=== PATIENT | female | born 1995 | race Caucasian/White ===

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

== ENCOUNTER 2017-02-05 17:50 | Emergency (ER) | payer OTHER ==
[~2017-02-05] VITALS: Ht 160 cm; Wt 54.4 kg
[2017-02-05 18:19] LABS: BILIRUBIN NEGATIVE (NEGATIVE); BLOOD NEGATIVE (NEGATIVE); CLARITY SL CLOUDY (CLEAR); COLOR YELLOW (YELLOW); GLUCOSE NEGATIVE (NEGATIVE); KETONE TRACE (NEGATIVE); LEUKO ESTERASE TRACE (NEGATIVE); NITRITE NEGATIVE (NEGATIVE)
[2017-02-05 18:29] LABS: BACTERIA 1+; EPITHELIAL CELLS TNTC
[2017-02-05 18:30] LABS: RBC 0-2 rbc/hpf (0-2)
[2017-02-05] MEDS ORDERED: ZOFRAN ODT4 MG SL (18:53)
== END 2017-02-05 19:03 | disposition home or self-care (01) ==
LOC: ED 17:50
PROVIDERS: Physician Assistant
DX: R11.2 Nausea with vomiting, unspecified (principal); Z88.5 Allergy status to narcotic agent; Z88.8 Allergy status to other drugs, medicaments and biological substances

== ENCOUNTER 2017-03-26 18:29 | Emergency (ER) | payer OTHER ==
[~2017-03-26] VITALS: Wt 57.6 kg
[2017-03-26 19:05] LABS: BILIRUBIN NEGATIVE (NEGATIVE); BLOOD 1+ (NEGATIVE); CLARITY SL CLOUDY (CLEAR); COLOR YELLOW (YELLOW); GLUCOSE NEGATIVE (NEGATIVE); KETONE NEGATIVE (NEGATIVE); LEUKO ESTERASE NEGATIVE (NEGATIVE); NITRITE NEGATIVE (NEGATIVE); SPECIFIC GRAVITY >= 1.030 (1.005-1.030); UROBILINOGEN 0.2 E.U./dl (0.2-1.0)
[2017-03-26 19:11] LABS: BACTERIA 1+; MUCOUS 1+
[2017-03-26 19:33] LABS: ALBUMIN 3.7 gm/dl (3.1-4.5); ALKALINE PHOSPHATASE 71 U/L (45-117); BUN 9 mg/dl (7-24); CHLORIDE 104 mmol/L (98-107); CREATININE 0.66 mg/dL (0.55-1.02); POTASSIUM 4.1 mmol/L (3.5-5.1); SGOT/AST 16 IU/L (3-35); SGPT/ALT 17 U/L (12-78); SODIUM 139 mmol/L (136-145); TOTAL PROTEIN 7.3 gm/dL (6.4-8.2)
[2017-03-26 20:03] LABS: BASO % 0.1 % (0.0-1.0); EOS # 0.1 10*3/uL (0.0-0.4); EOS % 0.7 % (1.0-4.0); HEMATOCRIT 39.6 % (37.0-47.0); HEMOGLOBIN 13.1 g/dl (12.0-16.0); LYMPH # 2.2 10*3/uL (1.3-4.4); LYMPH % 30.3 % (27.0-41.0); MEAN CELL VOLUME 91.5 fl (81.0-99.0); MEAN CORPUSCULAR HGB 30.3 pg (27.0-31.0); MEAN CORPUSCULAR HGB CONC 33.1 g/dl (33.0-37.0); MEAN PLATELET VOLUME 10.7 fl (9.6-12.3); MONO # 0.3 10*3/uL (0.1-1.0); MONO % 4.5 % (3.0-9.0); NEUT # 4.6 10*3/uL (2.3-7.9); NEUT % 64.1 % (47.0-73.0); PLATELET COUNT AUTOMATED 221 10*3/uL (130-400); RED BLOOD COUNT 4.33 10*6/uL (4.10-5.10); RED CELL DISTRI WIDTH 13.3 % (0-14.5); WHITE BLOOD COUNT 7.2 10*3/uL (4.8-10.8)
== END 2017-03-26 20:29 | disposition home or self-care (01) ==
LOC: ED 18:29
PROVIDERS: Nurse Practitioner
DX: O46.91 Antepartum hemorrhage, unspecified, first trimester (principal); O26.891 Other specified pregnancy related conditions, first trimester; Z3A.01 Less than 8 weeks gestation of pregnancy; R10.30 Lower abdominal pain, unspecified; Z88.5 Allergy status to narcotic agent

== ENCOUNTER → 2017-03-29 | Outpatient (CLI) | payer OTHER | END | disposition home or self-care (01) | LOC: LAB 14:44 | DX: O20.9 Hemorrhage in early pregnancy, unspecified (principal) ==

== ENCOUNTER 2017-09-17 05:46 | Emergency (ER) | payer OTHER ==
[~2017-09-17] VITALS: Ht 157.4 cm; Wt 54.4 kg
--- NOTE | ~2017-09-17 | EKG ---
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
[2017-09-17 06:55] LABS: BASO % 0.2 % (0.0-1.0); EOS % 0.2 % (1.0-4.0); HEMATOCRIT 41.5 % (37.0-47.0); HEMOGLOBIN 13.8 g/dl (12.0-16.0); LYMPH # 2.2 10*3/uL (1.3-4.4); LYMPH % 26.8 % (27.0-41.0); MEAN CELL VOLUME 95.2 fl (81.0-99.0); MEAN CORPUSCULAR HGB 31.7 pg (27.0-31.0); MEAN CORPUSCULAR HGB CONC 33.3 g/dl (33.0-37.0); MEAN PLATELET VOLUME 10.9 fl (9.6-12.3); MONO # 0.5 10*3/uL (0.1-1.0); MONO % 5.7 % (3.0-9.0); NEUT # 5.4 10*3/uL (2.3-7.9); NEUT % 66.9 % (47.0-73.0); PLATELET COUNT AUTOMATED 213 10*3/uL (130-400); RED BLOOD COUNT 4.36 10*6/uL (4.10-5.10); RED CELL DISTRI WIDTH 12.4 % (0-14.5); WHITE BLOOD COUNT 8.1 10*3/uL (4.8-10.8)
[2017-09-17 07:12] LABS: ALBUMIN 4.2 gm/dl (3.1-4.5); ALKALINE PHOSPHATASE 64 U/L (45-117); BUN 12 mg/dl (7-24); CHLORIDE 108 mmol/L (98-107); POTASSIUM 3.6 mmol/L (3.5-5.1); SGOT/AST 11 IU/L (3-35); SGPT/ALT 14 U/L (12-78); SODIUM 142 mmol/L (136-145); TOTAL PROTEIN 7.6 gm/dL (6.4-8.2)
[2017-09-17 07:13] LABS: B-hCG (QUALITATIVE) NEGATIVE (NEGATIVE); ETHYL ALCOHOL < 3.0 mg/dl (<3)
[2017-09-17 07:17] LABS: BETA-HCG, QUANT < 1.0 mIU/mL (1-3); TROPONIN I < 0.015 ng/ml (<0.045)
[2017-09-17 07:24] LABS: BILIRUBIN NEGATIVE (NEGATIVE); BLOOD 3+ (NEGATIVE); CLARITY CLOUDY (CLEAR); COLOR YELLOW (YELLOW); GLUCOSE NEGATIVE (NEGATIVE); KETONE NEGATIVE (NEGATIVE); LEUKO ESTERASE NEGATIVE (NEGATIVE); NITRITE NEGATIVE (NEGATIVE); PH 6.5 (5.0-9.0)
[2017-09-17 07:36] LABS: BACTERIA 2+; EPITHELIAL CELLS 15-20; MUCOUS 1+
[2017-09-17] MEDS ORDERED: IBUPROFEN600 MG PO (08:26)
[2017-09-17] MEDS ORDERED: ZOFRAN ODT4 MG SL (08:26)
== END 2017-09-17 08:45 | disposition home or self-care (01) ==
LOC: ED 05:46
PROVIDERS: Emergency Medicine Emergency Medical Services
DX: S09.90XA Unspecified injury of head, initial encounter (principal); R07.89 Other chest pain; K21.9 Gastro-esophageal reflux disease without esophagitis; Z98.890 Other specified postprocedural states; Z88.5 Allergy status to narcotic agent; Y04.0XXA Assault by unarmed brawl or fight, initial encounter; Y93.89 Activity, other specified; Y92.89 Other specified places as the place of occurrence of the external cause; Y99.9 Unspecified external cause status

== ENCOUNTER 2017-11-02 22:19 | Emergency (ER) | payer OTHER ==
[~2017-11-02] VITALS: Ht 160 cm; Wt 54.4 kg
[2017-11-02] MEDS ORDERED: MEDROL DOSEPAK4 MG PO (22:55)
[2017-11-02] MEDS ORDERED: CYCLOBENZAPRINE5 M3 PO (22:55)
[2017-11-02] MEDS ORDERED: Motrin,Rufen800 MG PO (22:55)
== END 2017-11-02 23:53 | disposition home or self-care (01) ==
LOC: ED 22:19
DX: M54.16 Radiculopathy, lumbar region (principal); K21.9 Gastro-esophageal reflux disease without esophagitis; Z88.0 Allergy status to penicillin; Z91.018 Allergy to other foods

== ENCOUNTER 2018-09-08 15:37 | Emergency (ER) | payer OTHER ==
[~2018-09-08] VITALS: Ht 160 cm; Wt 54.0 kg
[~2018-09-08 15:37] MED LIST changes: +AMOXICILLIN500 M2 PO; +CYCLOBENZAPRINE5 M3 PO; +Motrin,Rufen800 MG PO
[2018-09-08] MEDS ORDERED: AUGMENTIN 875-875 MG PO (16:34)
[2018-09-08] MEDS ORDERED: CORTISPORIN SUS10 ML OT (16:34)
== END 2018-09-08 16:40 | disposition home or self-care (01) ==
LOC: ED 15:37
DX: J01.90 Acute sinusitis, unspecified (principal); H60.41 Cholesteatoma of right external ear; Z88.6 Allergy status to analgesic agent; Z91.018 Allergy to other foods

== ENCOUNTER 2018-09-18 18:57 | Emergency (ER) | payer SELFPAY ==
[~2018-09-18] VITALS: Wt 54.4 kg
[~2018-09-18 18:57] MED LIST changes: +AUGMENTIN 875-875 MG PO
[2018-09-18 20:10] LABS: BASO % 0.2 % (0.0-1.0); EOS # 0.1 10*3/uL (0.0-0.4); EOS % 0.6 % (1.0-4.0); HEMATOCRIT 35.8 % (37.0-47.0); HEMOGLOBIN 11.6 g/dl (12.0-16.0); LYMPH # 3.9 10*3/uL (1.3-4.4); LYMPH % 37.7 % (27.0-41.0); MEAN CORPUSCULAR HGB 31.4 pg (27.0-31.0); MEAN CORPUSCULAR HGB CONC 32.4 g/dl (33.0-37.0); MEAN PLATELET VOLUME 11.1 fl (9.6-12.3); MONO # 0.6 10*3/uL (0.1-1.0); MONO % 6.1 % (3.0-9.0); NEUT # 5.6 10*3/uL (2.3-7.9); NEUT % 55.2 % (47.0-73.0); PLATELET COUNT AUTOMATED 226 10*3/uL (130-400); RED BLOOD COUNT 3.69 10*6/uL (4.10-5.10); RED CELL DISTRI WIDTH 12.6 % (0-14.5); WHITE BLOOD COUNT 10.2 10*3/uL (4.8-10.8)
[2018-09-18 20:26] LABS: ALBUMIN 3.5 gm/dl (3.1-4.5); ALKALINE PHOSPHATASE 53 U/L (45-117); BUN 10 mg/dl (7-24); CHLORIDE 106 mmol/L (98-107); CREATININE 0.71 mg/dL (0.55-1.02); POTASSIUM 3.2 mmol/L (3.5-5.1); SGOT/AST 11 IU/L (3-35); SGPT/ALT 14 U/L (12-78); SODIUM 136 mmol/L (136-145); TOTAL PROTEIN 6.5 gm/dL (6.4-8.2)
[2018-09-18 20:34] LABS: B-hCG (QUALITATIVE) POSITIVE (NEGATIVE)
[2018-09-18 20:43] LABS: BILIRUBIN NEGATIVE (NEGATIVE); BLOOD NEGATIVE (NEGATIVE); CLARITY CLEAR (CLEAR); COLOR YELLOW (YELLOW); GLUCOSE NEGATIVE (NEGATIVE); KETONE NEGATIVE (NEGATIVE); LEUKO ESTERASE NEGATIVE (NEGATIVE); NITRITE NEGATIVE (NEGATIVE); PH 6.5 (5.0-9.0); UROBILINOGEN 0.2 E.U./dl (0.2-1.0)
[2018-09-18 20:50] LABS: BACTERIA TRACE; EPITHELIAL CELLS 16-20
[2018-09-18] MEDS ORDERED: PRENATAL ONE D1 EACH PO (21:36)
[2018-09-18] MEDS ORDERED: DICLEGIS DR 101 EACH PO (21:36)
== END 2018-09-18 22:05 | disposition home or self-care (01) ==
LOC: ED 18:57
PROVIDERS: Physician Assistant
DX: O26.891 Other specified pregnancy related conditions, first trimester (principal); R42 Dizziness and giddiness; R55 Syncope and collapse; R53.1 Weakness; Z3A.01 Less than 8 weeks gestation of pregnancy; Z91.018 Allergy to other foods; Z88.5 Allergy status to narcotic agent; Z79.899 Other long term (current) drug therapy; Z79.2 Long term (current) use of antibiotics

== ENCOUNTER 2019-05-16 00:46 | Emergency (ER) | payer OTHER ==
[~2019-05-16] VITALS: Ht 160 cm; Wt 59.0 kg
[~2019-05-16 00:46] MED LIST changes: +DICLEGIS DR 101 EACH PO; +PRENATAL ONE D1 EACH PO
[2019-05-16 01:25] LABS: BILIRUBIN NEGATIVE (NEGATIVE); BLOOD 3+ (NEGATIVE); CLARITY SL CLOUDY (CLEAR); COLOR YELLOW (YELLOW); GLUCOSE NEGATIVE (NEGATIVE); KETONE NEGATIVE (NEGATIVE); NITRITE NEGATIVE (NEGATIVE); SPECIFIC GRAVITY 1.015 (1.005-1.030); UROBILINOGEN 0.2 E.U./dl (0.2-1.0)
[2019-05-16 01:26] LABS: LEUKO ESTERASE 1+ (NEGATIVE)
[2019-05-16 01:35] LABS: BACTERIA 4+; EPITHELIAL CELLS 25-30; RBC TNTC rbc/hpf (0-2); WBC TNTC wbc/hpf (0-5)
[2019-05-16] MEDS ORDERED: PYRIDIUM200 M1 PO (01:53)
[2019-05-16] MEDS ORDERED: AMOXICILLIN500 M2 PO (01:53)
== END 2019-05-16 02:12 | disposition home or self-care (01) ==
LOC: ED 00:46
PROVIDERS: Emergency Medicine
DX: N39.0 Urinary tract infection, site not specified (principal); Z88.5 Allergy status to narcotic agent; Z88.8 Allergy status to other drugs, medicaments and biological substances

== ENCOUNTER → 2019-08-24 | Outpatient (CLI) | payer OTHER ==
[~2019-08-24] MED LIST changes: +PYRIDIUM200 M1 PO
== END | disposition home or self-care (01) ==
LOC: NM 11:00
DX: R10.9 Unspecified abdominal pain (principal)

== ENCOUNTER 2021-09-05 18:55 | Emergency (ER) | payer OTHER ==
[~2021-09-05] VITALS: Ht 160 cm; Wt 60.6 kg
[2021-09-05 19:22] LABS: BASO % 0.2 % (0.0-1.0); EOS # 0.1 10*3/uL (0.0-0.4); EOS % 2.4 % (1.0-4.0); HEMATOCRIT 38.6 % (37.0-47.0); LYMPH # 1.7 10*3/uL (1.3-4.4); LYMPH % 37.4 % (27.0-41.0); MEAN CELL VOLUME 92.3 fl (81.0-99.0); MEAN CORPUSCULAR HGB 30.1 pg (27.0-31.0); MEAN CORPUSCULAR HGB CONC 32.6 g/dl (33.0-37.0); MEAN PLATELET VOLUME 10.7 fl (9.6-12.3); MONO # 0.4 10*3/uL (0.1-1.0); MONO % 9.6 % (3.0-9.0); NEUT # 2.3 10*3/uL (2.3-7.9); NEUT % 50.4 % (47.0-73.0); PLATELET COUNT AUTOMATED 197 10*3/uL (130-400); RED BLOOD COUNT 4.18 10*6/uL (4.10-5.10); RED CELL DISTRI WIDTH 13.8 % (0-14.5); WHITE BLOOD COUNT 4.6 10*3/uL (4.8-10.8)
[2021-09-05] MEDS ORDERED: ESCITALOPRAM OX10 MG PO (19:32)
[2021-09-05 19:34] LABS: ACT PARTIAL THROMBO TIME 32.9 SECONDS (20.0-32.1)
[2021-09-05 19:39] LABS: ALKALINE PHOSPHATASE 92 U/L (45-117); BUN 14 mg/dl (7-24); CHLORIDE 109 mmol/L (98-107); CREATININE 0.75 mg/dL (0.55-1.02); POTASSIUM 3.6 mmol/L (3.5-5.1); SGOT/AST 15 IU/L (3-35); SGPT/ALT 17 U/L (12-78); SODIUM 141 mmol/L (136-145); TOTAL PROTEIN 6.9 gm/dL (6.4-8.2)
== END 2021-09-05 20:36 | disposition home or self-care (01) ==
LOC: ED 18:55
PROVIDERS: Internal Medicine
DX: R07.9 Chest pain, unspecified (principal); T50.B95A Adverse effect of other viral vaccines, initial encounter; Z88.8 Allergy status to other drugs, medicaments and biological substances; Z91.018 Allergy to other foods; Z79.899 Other long term (current) drug therapy; Y92.89 Other specified places as the place of occurrence of the external cause

== ENCOUNTER 2022-06-11 21:46 | Emergency (ER) | payer OTHER ==
[~2022-06-11] VITALS: Ht 160 cm; Wt 53.5 kg
[~2022-06-11 21:46] MED LIST changes: +ESCITALOPRAM OX10 MG PO
[2022-06-11 22:20] LABS: BASO % 0.2 % (0.0-1.0); EOS % 0.3 % (1.0-4.0); HEMATOCRIT 39.3 % (37.0-47.0); LYMPH % 25.8 % (27.0-41.0); MEAN CELL VOLUME 92.9 fl (81.0-99.0); MEAN CORPUSCULAR HGB 30.7 pg (27.0-31.0); MEAN CORPUSCULAR HGB CONC 33.1 g/dl (33.0-37.0); MEAN PLATELET VOLUME 10.7 fl (9.6-12.3); MONO # 0.6 10*3/uL (0.1-1.0); NEUT % 68.4 % (47.0-73.0); PLATELET COUNT AUTOMATED 237 10*3/uL (130-400); RED BLOOD COUNT 4.23 10*6/uL (4.10-5.10); WHITE BLOOD COUNT 11.7 10*3/uL (4.8-10.8)
[2022-06-11 22:37] LABS: ALKALINE PHOSPHATASE 63 U/L (46-116); BUN 8 mg/dl (9-23); CHLORIDE 107 mmol/L (98-107); LIPASE 32 U/L (12-53); POTASSIUM 3.4 mmol/L (3.4-5.1); TOTAL PROTEIN 6.6 gm/dL (6.0-8.0)
[2022-06-11 22:39] LABS: SGPT/ALT < 7 U/L (10-49)
[2022-06-11 22:43] LABS: BILIRUBIN Negative (Negative); BLOOD Negative (Negative); CLARITY Clear (Clear); COLOR Yellow (Yellow); GLUCOSE Negative (Negative); KETONE Negative (Negative); LEUKO ESTERASE Trace (Negative); NITRITE Negative (Negative); SPECIFIC GRAVITY >= 1.030 (1.001-1.030)
[2022-06-11 22:57] LABS: BACTERIA 2+; EPITHELIAL CELLS 21-30
== END 2022-06-11 23:37 | disposition home or self-care (01) ==
LOC: ED 21:46
PROVIDERS: Internal Medicine
DX: O21.0 Mild hyperemesis gravidarum (principal); Z3A.00 Weeks of gestation of pregnancy not specified; Z88.8 Allergy status to other drugs, medicaments and biological substances; Z91.018 Allergy to other foods

== ENCOUNTER 2022-08-05 12:05 | Emergency (ER) | payer MEDICAID ==
[~2022-08-05] VITALS: Wt 55.3 kg
[2022-08-05 12:53] LABS: BILIRUBIN Negative (Negative); BLOOD Negative (Negative); CLARITY Clear (Clear); COLOR Yellow (Yellow); GLUCOSE Negative (Negative); KETONE 1+ (Negative); LEUKO ESTERASE Negative (Negative); NITRITE Negative (Negative); PH 5.5 (4.5-8.0); SPECIFIC GRAVITY 1.025 (1.001-1.030)
[2022-08-05 13:01] LABS: BASO % 0.1 % (0.0-1.0); EOS % 0.4 % (1.0-4.0); HEMATOCRIT 40.4 % (37.0-47.0); LYMPH # 1.9 10*3/uL (1.3-4.4); LYMPH % 22.5 % (27.0-41.0); MEAN CELL VOLUME 94.6 fl (81.0-99.0); MEAN CORPUSCULAR HGB 32.1 pg (27.0-31.0); MEAN CORPUSCULAR HGB CONC 33.9 g/dl (33.0-37.0); MEAN PLATELET VOLUME 10.8 fl (9.6-12.3); MONO # 0.4 10*3/uL (0.1-1.0); MONO % 4.3 % (3.0-9.0); NEUT # 6.2 10*3/uL (2.3-7.9); NEUT % 72.5 % (47.0-73.0); PLATELET COUNT AUTOMATED 217 10*3/uL (130-400); RED BLOOD COUNT 4.27 10*6/uL (4.10-5.10); RED CELL DISTRI WIDTH 13.2 % (0-14.5); WHITE BLOOD COUNT 8.6 10*3/uL (4.8-10.8)
[2022-08-05 13:05] LABS: BACTERIA 2+; CALCIUM OXALATE CRYSTALS Trace; EPITHELIAL CELLS 41-50; MUCOUS 1+
[2022-08-05 13:28] LABS: ACT PARTIAL THROMBO TIME 29.6 SECONDS (20.0-32.1)
[2022-08-05 13:34] LABS: ALKALINE PHOSPHATASE 47 U/L (46-116); BUN 5 mg/dl (9-23); CHLORIDE 106 mmol/L (98-107); LIPASE 39 U/L (12-53); POTASSIUM 3.6 mmol/L (3.4-5.1); SGPT/ALT 11 U/L (10-49); TOTAL PROTEIN 6.7 gm/dL (6.0-8.0)
[2022-08-05] MEDS ORDERED: CEPHALEXIN500 M1 PO ×3 (13:56→13:57)
== END 2022-08-05 15:37 | disposition home or self-care (01) ==
LOC: ED 12:05
PROVIDERS: Internal Medicine
DX: O41.10 Infection of amniotic sac and membranes, unspecified (principal); R11.0 Nausea; Z91.018 Allergy to other foods; Z88.5 Allergy status to narcotic agent; Z3A.11 11 weeks gestation of pregnancy

== ENCOUNTER 2022-09-27 02:49 | Emergency (ER) | payer OTHER ==
[~2022-09-27] VITALS: Ht 160 cm; Wt 57.7 kg
[~2022-09-27 02:49] MED LIST changes: +CEPHALEXIN500 M1 PO
[2022-09-27 03:05] LABS: BASO % 0.2 % (0.0-1.0); HEMATOCRIT 39.8 % (37.0-47.0); LYMPH # 1.4 10*3/uL (1.3-4.4); LYMPH % 22.2 % (27.0-41.0); MEAN CELL VOLUME 93.6 fl (81.0-99.0); MEAN CORPUSCULAR HGB 31.8 pg (27.0-31.0); MEAN CORPUSCULAR HGB CONC 33.9 g/dl (33.0-37.0); MEAN PLATELET VOLUME 10.2 fl (9.6-12.3); MONO # 0.3 10*3/uL (0.1-1.0); MONO % 4.5 % (3.0-9.0); NEUT # 4.6 10*3/uL (2.3-7.9); NEUT % 72.8 % (47.0-73.0); PLATELET COUNT AUTOMATED 312 10*3/uL (130-400); RED BLOOD COUNT 4.25 10*6/uL (4.10-5.10); RED CELL DISTRI WIDTH 12.3 % (0-14.5); WHITE BLOOD COUNT 6.3 10*3/uL (4.8-10.8)
[2022-09-27 03:20] LABS: ACT PARTIAL THROMBO TIME 30.2 SECONDS (20.0-32.1); INTERNATIONAL NORM RATIO 1.1 (2.0-3.5)
[2022-09-27 03:26] LABS: ALKALINE PHOSPHATASE 72 U/L (46-116); CHLORIDE 109 mmol/L (98-107); LIPASE 32 U/L (12-53); POTASSIUM 3.1 mmol/L (3.4-5.1); SGPT/ALT 8 U/L (10-49)
[2022-09-27 03:27] LABS: BUN < 5 mg/dl (9-23)
[2022-09-27 04:33] LABS: URINE AMPHETAMINES Negative (1000ng/ml); URINE BARBITURATES Negative (200ng/ml); URINE BENZODIAZEPINES Negative (200ng/ml); URINE CANNABINOIDS (THC) Negative (50ng/ml); URINE COCAINE Negative (300ng/ml); URINE METHADONE Negative (300ng/ml); URINE OPIATES Negative (300ng/ml); URINE PHENCYCLIDINE Negative (25ng/ml)
== END 2022-09-27 09:10 | disposition left against medical advice (07) ==
LOC: ED 02:49
PROVIDERS: Internal Medicine
DX: S01.81XA Laceration without foreign body of other part of head, initial encounter (principal); F10.129 Alcohol abuse with intoxication, unspecified; E87.6 Hypokalemia; E87.20 Acidosis, unspecified; Z88.5 Allergy status to narcotic agent; Z91.018 Allergy to other foods; Z79.899 Other long term (current) drug therapy; Y90.8 Blood alcohol level of 240 mg/100 ml or more; W01.0XXA Fall on same level from slipping, tripping and stumbling without subsequent striking against object, initial encounter; Y93.89 Activity, other specified; Y92.89 Other specified places as the place of occurrence of the external cause; Y99.8 Other external cause status

== ENCOUNTER 2023-02-03 12:06 | Emergency (ER) | payer OTHER | END 2023-02-03 13:26 | disposition left against medical advice (07) | LOC: ED 12:06 | DX: R50.9 Fever, unspecified (principal); R05.9 Cough, unspecified; Z88.5 Allergy status to narcotic agent; Z91.018 Allergy to other foods; Z53.21 Procedure and treatment not carried out due to patient leaving prior to being seen by health care provider ==

== ENCOUNTER 2023-04-05 12:50 | Emergency (ER) | payer OTHER ==
[~2023-04-05] VITALS: Ht 160 cm; Wt 50.8 kg
[2023-04-05 13:36] LABS: BASO % 0.3 % (0.0-1.0); EOS # 0.1 10*3/uL (0.0-0.4); EOS % 1.5 % (1.0-4.0); HEMATOCRIT 44.4 % (37.0-47.0); LYMPH # 1.4 10*3/uL (1.3-4.4); LYMPH % 23.5 % (27.0-41.0); MEAN CELL VOLUME 92.7 fl (81.0-99.0); MEAN CORPUSCULAR HGB 30.1 pg (27.0-31.0); MEAN CORPUSCULAR HGB CONC 32.4 g/dl (33.0-37.0); MEAN PLATELET VOLUME 10.4 fl (9.6-12.3); MONO # 0.5 10*3/uL (0.1-1.0); MONO % 8.6 % (3.0-9.0); NEUT % 65.9 % (47.0-73.0); PLATELET COUNT AUTOMATED 285 10*3/uL (130-400); RED BLOOD COUNT 4.79 10*6/uL (4.10-5.10); RED CELL DISTRI WIDTH 12.8 % (0-14.5); WHITE BLOOD COUNT 6.1 10*3/uL (4.8-10.8)
[2023-04-05 13:42] LABS: BILIRUBIN Negative (Negative); BLOOD 3+ (Negative); CLARITY Cloudy (Clear); COLOR Dark Yellow (Yellow); GLUCOSE Negative (Negative); KETONE Trace (Negative); LEUKO ESTERASE Negative (Negative); NITRITE Negative (Negative); SPECIFIC GRAVITY >= 1.030 (1.001-1.030)
[2023-04-05 13:46] LABS: ACT PARTIAL THROMBO TIME 35.6 SECONDS (20.0-32.1)
[2023-04-05 13:55] LABS: BACTERIA 2+; EPITHELIAL CELLS 51-100; RBC 16-20 rbc/hpf (0-2)
[2023-04-05 14:08] LABS: BUN 8 mg/dl (9-23); CHLORIDE 105 mmol/L (98-107); POTASSIUM 3.1 mmol/L (3.4-5.1)
[2023-04-05] MEDS ORDERED: CEPHALEXIN 500 MG CAP PO ONE (14:50)
[2023-04-05] MEDS ORDERED: POTASSIUM CHLORIDE 20 MEQ TAB PO ONE (14:50)
[2023-04-05] MEDS ORDERED: CEPHALEXIN500 M1 PO (14:53)
== END 2023-04-05 15:06 | disposition home or self-care (01) ==
LOC: ED 12:50
PROVIDERS: Nurse Practitioner Family
DX: O46.91 Antepartum hemorrhage, unspecified, first trimester (principal); F41.9 Anxiety disorder, unspecified; O26.891 Other specified pregnancy related conditions, first trimester; K21.9 Gastro-esophageal reflux disease without esophagitis; R82.71 Bacteriuria; E87.6 Hypokalemia; R07.89 Other chest pain; R10.2 Pelvic and perineal pain; Z3A.01 Less than 8 weeks gestation of pregnancy; Z88.8 Allergy status to other drugs, medicaments and biological substances; Z88.5 Allergy status to narcotic agent

== ENCOUNTER 2023-04-29 13:21 | Emergency (ER) | payer OTHER ==
[~2023-04-29] VITALS: Ht 160 cm; Wt 54.9 kg
[2023-04-29 14:17] LABS: BASO % 0.1 % (0.0-1.0); EOS % 0.4 % (1.0-4.0); HEMATOCRIT 41.2 % (37.0-47.0); LYMPH # 1.6 10*3/uL (1.3-4.4); LYMPH % 19.9 % (27.0-41.0); MEAN CELL VOLUME 93.6 fl (81.0-99.0); MEAN CORPUSCULAR HGB 30.5 pg (27.0-31.0); MEAN CORPUSCULAR HGB CONC 32.5 g/dl (33.0-37.0); MEAN PLATELET VOLUME 10.9 fl (9.6-12.3); MONO # 0.5 10*3/uL (0.1-1.0); MONO % 6.9 % (3.0-9.0); NEUT # 5.7 10*3/uL (2.3-7.9); NEUT % 72.4 % (47.0-73.0); PLATELET COUNT AUTOMATED 203 10*3/uL (130-400); RED CELL DISTRI WIDTH 13.2 % (0-14.5); WHITE BLOOD COUNT 7.8 10*3/uL (4.8-10.8)
[2023-04-29 14:27] LABS: BILIRUBIN Negative (Negative); BLOOD Negative (Negative); CLARITY Clear (Clear); COLOR Yellow (Yellow); GLUCOSE Negative (Negative); KETONE Negative (Negative); LEUKO ESTERASE 1+ (Negative); NITRITE Negative (Negative); SPECIFIC GRAVITY <= 1.005 (1.001-1.030); UROBILINOGEN 0.2 E.U./dl (0.0-1.0)
[2023-04-29 14:42] LABS: BACTERIA 1+; EPITHELIAL CELLS 16-20; MUCOUS 1+; RBC 0-2 rbc/hpf (0-2); WBC 21-30 wbc/hpf (0-5)
[2023-04-29 14:47] LABS: BUN 6 mg/dl (9-23); CHLORIDE 105 mmol/L (98-107)
== END 2023-04-29 15:45 | disposition home or self-care (01) ==
LOC: ED 13:21
PROVIDERS: Nurse Practitioner Family
DX: O46.91 Antepartum hemorrhage, unspecified, first trimester (principal); O26.891 Other specified pregnancy related conditions, first trimester; R10.9 Unspecified abdominal pain; R10.2 Pelvic and perineal pain; Z3A.09 9 weeks gestation of pregnancy; Z88.8 Allergy status to other drugs, medicaments and biological substances; Z88.5 Allergy status to narcotic agent

== ENCOUNTER 2023-12-29 17:03 | Emergency (ER) | payer OTHER ==
[~2023-12-29] VITALS: Wt 66.7 kg
[2023-12-29] MEDS ORDERED: AMOX-CLAV 875-1 EACH PO (17:43)
== END 2023-12-29 17:44 | disposition home or self-care (01) ==
LOC: ED 17:03
DX: H66.91 Otitis media, unspecified, right ear (principal); Z88.8 Allergy status to other drugs, medicaments and biological substances; Z88.5 Allergy status to narcotic agent

== ENCOUNTER 2025-02-08 13:57 | Emergency (ER) | payer OTHER ==
[~2025-02-08] VITALS: Ht 160 cm; Wt 60.3 kg
[~2025-02-08 13:57] MED LIST changes: +AMOX-CLAV 875-1 EACH PO
[2025-02-08] MEDS ORDERED: IOHEXOL 300 MG/ML 100 ML VIAL IV ONE (14:20)
[2025-02-08] MEDS ORDERED: SODIUM CHLORIDE 0.9% 1,000 ML IV ONE (14:20)
[2025-02-08 14:31] LABS: BASO # 0.0 10*3/uL (0.0-0.1); BASO % 0.1 % (0.0-1.0); EOS # 0.1 10*3/uL (0.0-0.4); EOS % 0.5 % (1.0-4.0); MEAN CELL VOLUME 93.6 fl (81.0-99.0); MEAN CORPUSCULAR HGB 30.8 pg (27.0-31.0); MEAN PLATELET VOLUME 10.8 fl (9.6-12.3); MONO # 0.7 10*3/uL (0.1-1.0); MONO % 7.7 % (3.0-9.0); NEUT # 5.8 10*3/uL (2.3-7.9); NEUT % 62.4 % (47.0-73.0); NUCLEATED RED BLOOD CELL 0.0 % (0.0-0.0); NUCLEATED RED BLOOD CELL 0.0 10*3/uL (0.0-0.0); PLATELET COUNT AUTOMATED 200 10*3/uL (130-400); RED CELL DISTRI WIDTH 13.1 % (0-14.5)
[2025-02-08 14:49] LABS: BILIRUBIN Negative (Negative); BLOOD Negative (Negative); CLARITY Clear (Clear); COLOR Yellow (Yellow); KETONE Negative (Negative); LEUKO ESTERASE Negative (Negative); NITRITE Negative (Negative); PH 6.0 (4.5-8.0); SPECIFIC GRAVITY >= 1.030 (1.001-1.030); UROBILINOGEN 0.2 E.U./dl (0.0-1.0)
[2025-02-08 15:01] LABS: BUN 13 mg/dl (9-23); SGPT/ALT 11 U/L (5-49)
[2025-02-08 15:05] LABS: BACTERIA TRACE; MUCOUS 3+
[2025-02-08] MEDS ORDERED: CEPHALEXIN500 M1 PO (15:15)
[2025-02-08] MEDS ORDERED: Motrin,Rufen800 MG PO (15:16)
[2025-02-08] MEDS ORDERED: IBUPROFEN 800 MG TAB PO ONE ×2 (15:25)
== END 2025-02-08 15:20 | disposition home or self-care (01) ==
LOC: ED 13:57
PROVIDERS: Nurse Practitioner Family
DX: L03.311 Cellulitis of abdominal wall (principal); R10.32 Left lower quadrant pain; K21.9 Gastro-esophageal reflux disease without esophagitis; F41.9 Anxiety disorder, unspecified; Z88.5 Allergy status to narcotic agent; Z91.018 Allergy to other foods; Z87.440 Personal history of urinary (tract) infections